=== PATIENT | male | born 1945 | race Caucasian/White ===

== ENCOUNTER 2019-12-19 14:18 | Outpatient (CLI) | payer OTHER, SELFPAY ==
--- NOTE | ~2019-12-19 | XR_ITS ---
EXAMINATION: XR heel RT min 2V DATE: 12/19/2019 14:51 INDICATION: Chronic right heel pain. Plantar fascial fibromatosis. TECHNIQUE: 2 views of right calcaneus were obtained. COMPARISON: None. FINDINGS: Bone alignment is normal. No fracture. There is mild osteoarthritis of talonavicular joint. There are enthesophytes at the posterior and plantar aspects of calcaneal tuberosity. IMPRESSION: 1. No fracture. Reviewed, dictated and finalized at location A. 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 No fracture.
== END 2019-12-19 14:19 | disposition home or self-care (01) ==
LOC: ANHIMG 14:33
PROVIDERS: PCP Internal Medicine; Visit Provider Nurse Practitioner
DX: M72.2 Plantar fascial fibromatosis (principal)
CPT/HCPCS: 73650

== ENCOUNTER 2020-03-17 11:16 | Outpatient (CLI) | payer OTHER, SELFPAY ==
--- NOTE | ~2020-03-17 | XR_ITS ---
XR_[id number]_CR DATE: 03/17/2020 11:47 INDICATION: Fall. Lower lateral and posterior rib pain TECHNIQUE: PA chest. 4 views of the right ribs. COMPARISON: None FINDINGS: There is slight angulation deformity of the posterolateral aspect of the right ninth rib wh ich may be a nondisplaced recent fracture or old fracture deformity. No displaced fractures or any un derlying pulmonary contusion, pleural effusion or pneumothorax is evident. Status post lower cervical spine surgical fusion. Mild dextroscoliosis of the thoracic spine. Diffuse osteopenia. IMPRESSION: Minimal fracture angulation deformity of posterolateral right ninth rib of undetermined a ge. No apparent displaced rib fractures Reviewed, dictated and finalized at Location A. Reviewed, dictated and finalized at location A. IMPRESSION: Minimal fracture angulation deformity of posterolateral right ninth rib of undetermined age. No apparent displaced rib fractures
== END 2020-03-17 11:17 | disposition home or self-care (01) ==
PROVIDERS: PCP Internal Medicine; Visit Provider Internal Medicine
DX: R07.81 Pleurodynia (principal); S22.31XA Fracture of one rib, right side, initial encounter for closed fracture
CPT/HCPCS: 71101

== ENCOUNTER 2020-06-30 00:04 | Outpatient (CLI) | payer OTHER, SELFPAY ==
[2020-06-30 16:39] LABS: SARS-CoV-2 RNA PCR Negative
== END 2020-06-30 00:05 | disposition home or self-care (01) ==
LOC: ANHCOVIDDT 00:04
PROVIDERS: PCP Internal Medicine; Visit Provider Internal Medicine Gastroenterology
DX: Z01.812 Encounter for preprocedural laboratory examination (principal); Z20.828 Contact with and (suspected) exposure to other viral communicable diseases
CPT/HCPCS: 87635; C9803; U0003

== ENCOUNTER 2020-07-02 02:01 | Day surgery (SDC) | payer OTHER, SELFPAY ==
[2020-06-19 08:19] VITALS: BMI 31.6
[2020-07-02] MEDS: LACTATED RINGERS 1,000 ML 150 ML IV CONT (09:39)
[2020-07-02 09:46] VITALS: BP 144/88; PULSE 78; RESP 16; TEMP 36.6; O2SAT 96; BMI 32.2
--- NOTE | 2020-07-02 10:13 | WPDANESEPPF ---
Anes - Initial Pre Proc Eval Procedure: Operation Date: 07/02/20 10:30 Proposed Procedures p Screening Colonoscopy - Alec Khalil MD Date/Time: 07/02/20 10:13 Surgeon: Alec Khalil MD Pre Op Diagnosis: neoplasm screening Patient Data Age: 74 Gender: M Height: 5 ft 10 in Weight: 101.8 kg Last Vital Signs Temp 98 F 07/02/20 09:46 Pulse 78 07/02/20 09:46 Resp 16 07/02/20 09:46 BP 144/88 H 07/02/20 09:46 Pulse Ox 96 07/02/20 09:46 Allergies Allergy/AdvReac Type Severity Reaction Status Date / Time No Known Allergies Allergy Verified 07/02/20 09:15 Home Medications Medication Instructions Recorded Confirmed Type calcium carbonate 500 mg calcium 500 mg PO DAILY 12/18/19 07/02/20 History (1,250 mg) capsule citalopram 20 mg tablet See Rx Instructions .ROUTE 02/29/20 07/02/20 Rx .COMPLEX #90 tablet pravastatin 80 mg tablet See Rx Instructions .ROUTE 02/29/20 07/02/20 Rx .COMPLEX #90 tablet tramadol 50 mg tablet 50 mg PO Q6H PRN #90 tablet 03/05/20 07/02/20 Rx benazepril 40 mg tablet 40 mg PO DAILY #90 tablet 04/03/20 07/02/20 Rx diphenhydramine 25 2 tablet PO .qhs PRN tablet 05/28/20 07/02/20 History mg-acetaminophen 500 mg tablet tamsulosin 0.4 mg capsule 0.4 mg PO DAILY #180 cap 06/18/20 07/02/20 Rx aspirin [Adult Low Dose Aspirin] 81 mg PO DAILY 07/02/20 07/02/20 History Patient hx anesthesia problems: none Family hx anesthesia problems: none PMFSH Past Medical History Medical History (Updated 07/02/20 @ 09:53 by Yoni Stewart MD) Benign prostatic hyperplasia Essential (primary) hypertension Screening for colon cancer Social History Social History Smoking packs per day: 1 Smoking cigarettes per day: 20.0 Years smoked: 10 Smoking pack-years: 10.00 Smoking status: Former smoker Tobacco type: cigarettes Smoking end date: 10/17/81 Alcohol intake: former Substance use: never Living arrangements: with family Spiritual care concerns: No Anes - Eval Final PreProcedure Day of Procedure 07/02/20 10:13 Patient weight: overweight Heart: regular rate and rhythm Lungs: clear to auscultation Airway: Mallampati scale class III Neurological: alert and oriented Last oral intake: >/= 8 hours ASA classification: II Emergent: no Anesthetic plan: proceed Anesthesia type and monitoring: general GIVS and standard monitoring Informed Consent: The patient's anesthetic plan and its attendant risks and benefits were discussed with the patient/family/POA. Questions were solicited and answers provided to the satisfaction of the patient/family/POA.
--- NOTE | 2020-07-02 10:35 | PM.HPGS ---
History of Present Illness History of Present Illness Consent: Risks, benefits, and alternatives have been discussed and questions answered. Patient agrees to proceed with procedure. Chief complaint: neoplasm screening Narrative: Wilmer Fregoso is a 74 year old male Here for screening colonoscopy. His a family history of colon cancer, his father. [facility] Past Medical History Medical History Benign prostatic hyperplasia Essential (primary) hypertension Screening for colon cancer Family History Family History Mother Family history of cataracts Family history of arthritis Family history of malignant neoplasm Patient's mother is Father Carcinoma of colon Patient's father is Family history of malignant neoplasm Sibling Patient's sister is in good health Patient's brother is in good health Other Family history of rheumatoid arthritis Social History Social History Smoking packs per day: 1 Smoking cigarettes per day: 20.0 Years smoked: 10 Smoking pack-years: 10.00 Smoking status: Former smoker Tobacco type: cigarettes Smoking end date: 10/17/81 Alcohol intake: former Substance use: never Living arrangements: with family Spiritual care concerns: No Meds Home Medications and Allergies Home Medications Medication Instructions Recorded Confirmed Type calcium carbonate 500 mg calcium 500 mg PO DAILY 12/18/19 07/02/20 History (1,250 mg) capsule citalopram 20 mg tablet See Rx Instructions .ROUTE 02/29/20 07/02/20 Rx .COMPLEX #90 tablet pravastatin 80 mg tablet See Rx Instructions .ROUTE 02/29/20 07/02/20 Rx .COMPLEX #90 tablet tramadol 50 mg tablet 50 mg PO Q6H PRN #90 tablet 03/05/20 07/02/20 Rx benazepril 40 mg tablet 40 mg PO DAILY #90 tablet 04/03/20 07/02/20 Rx diphenhydramine 25 2 tablet PO .qhs PRN tablet 05/28/20 07/02/20 History mg-acetaminophen 500 mg tablet tamsulosin 0.4 mg capsule 0.4 mg PO DAILY #180 cap 06/18/20 07/02/20 Rx aspirin [Adult Low Dose Aspirin] 81 mg PO DAILY 07/02/20 07/02/20 History Allergies Allergy/AdvReac Type Severity Reaction Status Date / Time No Known Allergies Allergy Verified 07/02/20 09:15 Vital Signs Vital Signs - 24 hr 07/02/20 09:46 Temperature 36.6 C Pulse Rate 78 Respiratory Rate 16 Blood Pressure 144/88 H Pulse Oximetry 96 Exam Resp: Auscultation: clear to auscultation bilaterally Cardio: Rate: regular rate Rhythm: regular rhythm GI: GI Palp: Yes Soft to palpation and No Tenderness to palpation present (GI) Assessment and Plan Assessment and plan (1) Screening for colon cancer: Code(s): Z12.11 - Encounter for screening for malignant neoplasm of colon Status: Acute Assessment and Plan: Colonoscopy with possible biopsy or polypectomy or cautery or injection of substances.
[2020-07-02] MEDS: SIMETHICONE ORAL SUSPENSION 20 MG/0.3 ML 30 ML BOTTLE 0.6 ML IRRIGATION (10:56)
[2020-07-02 11:03] VITALS: BP 118/73; PULSE 69; RESP 18; O2SAT 95
[2020-07-02 11:13] VITALS: BP 120/75; PULSE 65; RESP 16; O2SAT 95
[2020-07-02 11:23] VITALS: BP 123/76; PULSE 57; RESP 14; O2SAT 97
[2020-07-02 11:33] VITALS: BP 134/87; PULSE 60; RESP 16; O2SAT 96
== END 2020-07-02 11:38 | disposition home or self-care (01) ==
PROVIDERS: PCP Internal Medicine; Visit Provider Internal Medicine Gastroenterology
PROC: 0DJD8ZZ Inspection of Lower Intestinal Tract, Via Natural or Artificial Opening Endoscopic (ICD-10-PCS; CPT 45378; principal; 2020-07-02 10:30)
DX: Z12.11 Encounter for screening for malignant neoplasm of colon (principal); I10 Essential (primary) hypertension; N40.0 Benign prostatic hyperplasia without lower urinary tract symptoms; Z87.891 Personal history of nicotine dependence
CPT/HCPCS: 45378; J2704; J7120

== ENCOUNTER 2020-12-22 11:18 | Outpatient (CLI) | payer OTHER, MEDICARE, SELFPAY | END 2020-12-22 11:19 | disposition home or self-care (01) | LOC: ANHCOVIDVC 11:18 | PROVIDERS: PCP Internal Medicine | DX: Z23 Encounter for immunization (principal) | CPT/HCPCS: 0001A; 91300 ==

== ENCOUNTER 2021-01-12 11:13 | Outpatient (CLI) | payer OTHER, MEDICARE, SELFPAY | END 2021-01-12 11:14 | disposition home or self-care (01) | LOC: ANHCOVIDVC 11:13 | PROVIDERS: PCP Internal Medicine | DX: Z23 Encounter for immunization (principal) | CPT/HCPCS: 0002A; 91300 ==

== ENCOUNTER 2021-12-04 09:33 | Outpatient (CLI) | payer OTHER, SELFPAY ==
--- NOTE | ~2021-12-04 | XR_ITS ---
EXAMINATION: XR lumbar spine 2-3V DATE: 12/04/2021 09:45 INDICATION: Low back pain TECHNIQUE: Anteroposterior and lateral views of the lumbar spine, and cone-down lateral view of the l umbosacral junction were obtained. COMPARISON: 11/19/2013 FINDINGS: There are changes of posterior fusion at L3-4. Bone alignment is normal. There is no fractu re. There is severe loss of intervertebral disc space height from L2-3 through L5-S1. Small degenerat acacia osteophytes project from the anterior endplates of multiple vertebral bodies. Calcified atheroscl erosis is noted. IMPRESSION: 1. Severe lumbar spondylosis without acute findings or significant interval change. Reviewed, dictated and finalized at location A. ASSEMBLER IMPRESSION: 1. Severe lumbar spondylosis without acute findings or significant interval carina nge.
== END 2021-12-04 09:34 | disposition home or self-care (01) ==
PROVIDERS: PCP Internal Medicine; Visit Provider Internal Medicine
DX: M47.816 Spondylosis without myelopathy or radiculopathy, lumbar region (principal); I70.0 Atherosclerosis of aorta
CPT/HCPCS: 72100

== ENCOUNTER 2021-12-15 06:41 | Outpatient (CLI) | payer OTHER, SELFPAY ==
--- NOTE | ~2021-12-15 | MR_ITS ---
EXAMINATION: MR lumbar spine wo con EXAM DATE: 12/15/2021 07:24 INDICATION: M54.16 - Radiculopathy, lumbar region . TECHNIQUE: Multi-sequential, multiplanar MR images of the lumbar spine were obtained without contrast . Sagittal T1, T2, T2 fat saturation images. Axial T2 weighted images. Correlation is made to lumba r x-ray from 12/04/2021. FINDINGS: There is L3-4 posterior fusion and laminotomies. Moderate to severe loss of the disc height from L2 through S1. Partially fused L3-4 vertebral bodies. There is 6 mm retrolisthesis L5 on S1. No spondylolysis suspected. The conus medullaris terminates at the L1/2 level and has normal signal int ensity and morphology. There are no suspicious marrow signal abnormalities. Paraspinal soft tissue i s unremarkable. Level by level evaluation: T12-L1: There is a mild diffuse disc bulge. Facet arthropathy: Mild to moderate. Neural foraminal stenosis: No stenosis. Central canal stenosis: No stenosis. L1-L2: There is a mild diffuse disc bulge. Facet arthropathy: Moderate. Neural foraminal stenosis: No stenosis. Central canal stenosis: No stenosis. L2-L3: There is a moderate to large diffuse disc bulge. Facet arthropathy: Severe . Ligamentum flavum enlargement. Neural foraminal stenosis: Moderate bilateral. Central canal stenosis: Moderate, nerve root crowding. L3-L4: Partially fused vertebral bodies. Facet arthropathy: Fused. Neural foraminal stenosis: Mild to moderate bilateral. Central canal stenosis: Mild. L4-L5: Moderate to severe Facet arthropathy: Severe . Ligamentum flavum enlargement. Neural foraminal stenosis: Moderate to severe left, moderate right. Central canal stenosis: Mild to moderate. L5-S1: There is a moderate diffuse disc bulge. Facet arthropathy: Moderate. Neural foraminal stenosis: Moderate to severe left, moderate right. Central canal stenosis: Mild. IMPRESSION: 1. Moderate to severe lumbar spondylosis as detailed above. 2. L3-4 fusion, laminotomies. Reviewed, dictated and finalized at location G. GN AND SALES CONSULTANT
== END 2021-12-15 06:42 | disposition home or self-care (01) ==
PROVIDERS: PCP Internal Medicine; Visit Provider Internal Medicine
DX: M54.16 Radiculopathy, lumbar region (principal); M47.816 Spondylosis without myelopathy or radiculopathy, lumbar region; Z98.1 Arthrodesis status
CPT/HCPCS: 72148

== ENCOUNTER → 2022-07-06 01:24 | Outpatient (CLI) | payer OTHER, SELFPAY ==
[2022-07-06 10:39] LABS: SARS-CoV-2 RNA PCR Positive
== END ==
PROVIDERS: PCP Internal Medicine; Visit Provider Internal Medicine
DX: U07.1 COVID-19 (principal)
CPT/HCPCS: C9803; U0003; U0005

== ENCOUNTER 2025-04-17 12:39 | Outpatient (CLI) | payer OTHER, SELFPAY ==
--- NOTE | ~2025-04-17 | XR_ITS ---
3 VIEWS LUMBAR SPINE Ordering provider: Darius Turcios History: . M54.16 - Radiculopathy, lumbar region . Comparison: None. FINDINGS: VERTEBRAL BODIES:Postoperative changes at the level of L3-4. No visible fracture or subluxation. DISK SPACES: Narrowing of the disc L2-L3, L3-L4, L4-L5 and L5-S1. SOFT TISSUES: Normal. IMPRESSION: No acute osseous abnormality lumbar spine. Postoperative changes Multilevel degenerative disc disease. Reviewed, dictated and finalized at location A.
--- NOTE | ~2025-04-17 | XR_ITS ---
XR sacrum coccyx min 2V Ordering provider: Darius Turcios History: . M46.1 - Sacroiliitis, not elsewhere classified . Comparison: None. FINDINGS: BONES: No acute fracture or dislocation. Postoperative changes in the lower lumbar area with multilevel degenerative disc disease. JOINTS: The sacroiliac joint spaces are normal. SOFT TISSUES: Soft tissues are normal. IMPRESSION: No acute osseous abnormality sacrum and coccyx. Multilevel degenerative disc disease. Reviewed, dictated and finalized at location A.
--- NOTE | ~2025-04-17 | MR_ITS ---
MRI of the lumbar spine Clinical History: Radiculopathy Technique: Axial T2-weighted images, and sagittal T1-weighted, T2-weighted, and T2 fat-sat images wer e acquired. COMPARISON: 12/15/2021 Findings: No acute fracture identified. Stable grade 1 retrolisthesis of L4 over L5. Osseous alignmen t is essentially unchanged from prior exam. Posterior fusion from L3 to L4 is again present, unchange d. No suspicious bone marrow signal abnormality seen. At L1-L2, there is moderate degenerative disc narrowing. There is mild disc bulge with moderate facet hypertrophy. No spinal canal stenosis. There is moderate to severe right neural foraminal narrowing, and mild left neural foraminal narrowing. At L2-L3, there is severe degenerative disc narrowing. Disc bulge and severe facet arthropathy result in severe spinal canal stenosis/thecal sac compression. There is severe right neural foraminal narro wing, and moderate left neural foraminal narrowing. At L3-L4, there is severe degenerative disc narrowing. There is facet arthropathy/fusion. No spinal c anal stenosis. There is mild bilateral neural foraminal narrowing. At L4-L5, there is severe degenerative disc narrowing. Disc bulge and severe facet arthropathy result in mild central canal stenosis. There is severe bilateral neural foraminal compromise. At L5-S1, there is severe degenerative disc narrowing. There is diffuse disc bulge with advanced face t arthropathy. No central canal stenosis. There is severe left neural foraminal narrowing, and modera te to severe right neural foraminal narrowing. Impression: Severe degenerative spondylosis, as detailed above, worst at L2-L3. Additional degenerative changes w ith multilevel neural foraminal narrowing and extensive facet arthropathy. Postoperative changes at L3-L4 is stable from prior exam. Reviewed, dictated and finalized at location . Impression: Severe degenerative spondylosis, as detailed above, worst at L2-L3. Additional degenerative changes with multilevel neural foraminal narrowing and extensive f acet arthropathy. Postoperative changes at L3-L4 is stable from prior exam.
== END 2025-04-17 12:40 | disposition home or self-care (01) ==
LOC: GOSHIMG 12:39
PROVIDERS: PCP Anesthesiology Pain Medicine; Visit Provider Anesthesiology Pain Medicine
DX: M51.369 Other intervertebral disc degeneration, lumbar region without mention of lumbar back pain or lower extremity pain (principal); M47.816 Spondylosis without myelopathy or radiculopathy, lumbar region; M51.379 Other intervertebral disc degeneration, lumbosacral region without mention of lumbar back pain or lower extremity pain; M21.372 Foot drop, left foot; M46.1 Sacroiliitis, not elsewhere classified
CPT/HCPCS: 72114; 72148; 72220

== ENCOUNTER 2025-05-06 08:04 | Day surgery (SDC) | payer OTHER, SELFPAY ==
--- NOTE | ~2025-05-06 | XR_ITS ---
XR fluoroscopy no charge Indication: Right L1-L2 and L2-3 transforaminal epidural steroid injection TECHNIQUE: Fluoroscopy used during Right L1-L2 and L2-3 transforaminal epidural steroid injection pe rformed by [Mayito Marino MD] on 05/06/2025. 28 seconds of fluoroscopy with 3 fluoroscopic imag es captured. FINDINGS: Correlate with procedure note. IMPRESSION: Fluoroscopy used during Right L1-L2 and L2-3 transforaminal epidural steroid injection. Reviewed, dictated and finalized at location A. IMPRESSION: Fluoroscopy used during Right L1-L2 and L2-3 transforaminal epidura l steroid injection.
--- OUTSIDE RECORDS SUMMARY | 2025-05-06 08:19 | XMS_ITS | Clinical Summary ---
Author Organization [facility] Address [address] [place] [address] Care Team Providers Care Regional Wildlife Agent Name Role Phone Unavailable Primary Care Provider Unavailabl e Source Comments [facility] [employer],non-owned Affiliates and Associated Physician Practices is amultiple site organization consisting of ambulatory clinics and hospital sitesin [place], [place], [place] and [place]. This disclosure is being madepursuant to the Care Everywhere program and may not contain all information available regarding this patient. 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 Gender Identity Not on file Sexual Orientation Not on file Plan of Treatment Health Maintenance Due Date Last Done Comments DTAP/TDAP/TD VACCINES (1 - Tdap) 1964 PNEUMOCOCCAL VACCINE 50+ (1 of 1 - PCV) 1995 ZOSTER VACCINE (1 of 2) 1995 Respiratory Syncytial Virus (RSV) Vaccine Pt: or over 60 yrs (1 - 1-dose 75+ series) 2020 COVID-19 VACCINE ( - 2023-2 5 season) 2024 DEPRESSION SCREENING 10/17/2024 INFLUENZA VACCINE (#1) 2025 HEPATITIS B VACCINE Aged Out No longe r eligible based on patient's age to complete this topic HIB VACCINE Aged Out No longer eligi ble based on patient's age to complete this topic HPV VACCINE Aged Out No longer eligi ble based on patient's age to complete this topic MENINGOCOCCAL (Group B) VACC INE SHARED DECISION-MAKING Aged Out No longer eligibl e based on patient's age to complete this topic MENINGOCOCCAL GROUPS A/C/Y/W VACCINE Aged Out No longer eligible b ased on patient's age to complete this topic
--- OUTSIDE RECORDS SUMMARY | 2025-05-06 08:19 | XMS_ITS | Clinical Summary ---
Author Organization [facility] Address [address] [place] [address] Care Team Providers Care Geothermal Hvac Technician Name Role Phone Unavailable Primary Care Provider Unavailabl e Allergies No known active allergies Medications Potassium 99 MG tablet Take 1 tablet by mouth daily. Active fish oil (OMEGA-3 FATTY ACID) 1000 MG Cap capsule Take 1 capsule (1,000 mg total) by mouth 2 (two) times daily. Active Vitamin D3 (VITAMIN D) 50 mcg tablet Act acacia B complex-C Cap capsule Take 1 capsule by mouth daily. Active aspirin EC (ECOTRIN) 81 MG tablet Take 1 tablet (81 mg total) by mouth daily. Active diphenhydrAMINE-APA P (TYLENOL PM) 25-500 MG Tab tablet Take 1 tablet by mouth nightly at bedtime. Active celecoxib (CELEBREX) 100 MG capsuleIndications: Chronic midline low back pain without sciatica TAKE 1 CAPSULE BY MOUTH 2 TIMES DAILY NEEDED FOR BACK PAIN 60 capsule 1 3 Active pravastatin (PRAVACHOL) 40 MG tabletIndications:H yperlipidemia, unspecified hyperlipidemia type take 1 tablet by mouth every day 90 tablet 1 4 Active citalopram (CELEXA) 20 MG tabletIndications:G eneralized anxiety disorder TAKE 1 TABLET BY MOUTH EVERY DAY 30 tablet 4 Active benazepril (LOTENSIN) 40 MG tabletIndications:P rimary hypertension TAKE 1 TABLET BY MOUTH EVERY DAY 90 tablet 1 4 Active benzonatate (TESSALON) 200 MG capsule take 1 capsule by mouth three times a day as needed for cough 4 Active tamsulosin (FLOMAX) 0.4 MG CapIndications:Joseph gn prostatic hyperplasia with nocturia TAKE 1 CAPSULE BY MOUTH 2 TIMES A DAY. 180 capsule 5 Active rOPINIRole (REQUIP) 0.25 MG tabletIndications:R LS (restless legs syndrome) TAKE 1 TABLET BY MOUTH EVERY DAY NIGHTLY NEEDED 30 tablet 5 Active Active Problems Problem Noted Date Diagnosed Date Prediabetes 10/31/2023 Actinic keratoses 04/15/2023 Skin lesion of right ear 04/15/2023 RLS (restless legs syndrome) 10/20/2022 Hyperlipidemia, unspecified hyperlipidemia type 10/20/2022 Primary hypertension 10/20/2022 Vitamin D deficiency 10/20/2022 Benign prostatic hyperplasia with nocturia 10/20 Generalized anxiety disorder 10/20/2022 Class 1 obesity due to exces s calories with serious comorbidity and body mass index (BMI) of 33.0 to 33.9 in adult 10/15/2022 Immunizations Immunization Administration Dates Next Due Arexvy Respiratory Syncytial Virus (RSV, adjuvanted) 0.5 mL, PF 04/05/2024 Fluzone High Dose (IIV, trivalent, 0.5mL) 2023 Fluzone High Dose - >Age 65 (Prefilled Syringe) 08/29/2022,07/29/2021 Influenza (Generic) 08/01/2014,10/31/2013,2011 Influenza Adult (Generic) 07/16/2023,08/02/2019, 07/26/2018 PFIZER COVID-19 (ORIGINAL FO RMULATION, PURPLE CAP) mRNA, LNP-S, PF, 30 MCG/0.3 ML DOSE 08/08/2021,01/12/2021,12/22/2020 PFIZER COVID-19 BIVALENT (12 +) mRNA, LNP-S, PF, 30 MCG/0.3 ML DOSE 08/29/2022 Pneumococcal (Pneumovax 23) 07/26/2018 Pneumococcal (Prevnar 20) 04/15/2023 Shingrix 04/05/2024,01/20/2024 Family History Medical History Relation Comments Cancer Father No Known Problems Mother Relation Status Comments Father (Age 62) Mother (Age 94) Social History Tobacco Use Types Packs/Day Years Used Date Smoking Tobacco: Former Cigarettes 1 10 1 11/17/1971 - 09/16/1982 Smokeless Tobacco: Never Alcohol Use Standard Drinks/Week Comments Not Currently 0 (1 standard drink = 0.6 oz pur e alcohol) PHQ-2 Answer Date Recorded Patient Health Questionnaire-2 Score 0 10/31/2023 Sex and Gender Information Value Date Recorded Sex Assigned at Not on file Legal Sex Male 4:53 PM CDT Gender Identity Not on file Sexual Orientation Not on file Last Filed Vital Signs Vital Sign Reading Time Taken Comments Blood Pressure 117/74 10/11/2024 1:24 PM 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 Pulse 90 10/11/2024 1:24 PM SPIRAL TUBE WINDER Temperature 37.2 C (99 F) 10/11/2024 1:24 PM SPIRAL TUBE WINDER Respiratory Rate 16 10/11/2024 1:24 PM SPIRAL TUBE WINDER Oxygen Saturation 93% 10/11/2024 1:24 PM SPIRAL TUBE WINDER Inhaled Oxygen Concentration - - Weight 104.6 kg (230 lb 9.6 oz) 10/11/2024 1:24 PM SPIRAL TUBE WINDER Height 177.8 cm (5' 10) 10/11/2024 1:24 PM SPIRAL TUBE WINDER Body Mass Index 33.09 10/11/2024 1:24 PM SPIRAL TUBE WINDER Plan of Treatment Health Maintenance Due Date Last Done Comments Annual Medicare Wellness Visit 2010 PHQ-2 (Physician [place]) 10/17/2024 10/31/2023 COVID-19 Vaccine ( season) 2025 07/16/2023, 08/29/2022, 08/08/2021, Additional history exists Postponed from 06/17/2024 (Patient Refused) DTaP, Tdap and Td Vaccines (1 - Tdap) 10/11/2025 Postponed from 1964 (Patient Refused) Pneumococcal Vaccine: 50+ Years Completed 04/15/2023, 07/26/2018 RSV Immunization or 60+ Years Completed 04/05/2024 Zoster Vaccines Completed 04/05/2024, 01/20/2024 Hepatitis C Completed 10/31/2024 Meningococcal B Vaccine Aged Out No l onger eligible based on patient's age to complete this topic Meningococcal Vaccine Aged Out No david rené eligible based on patient's age to complete this topic RSV Immunizations Under 20 Months Aged Out No longer eligible based on patient's age to complete this topic Procedures Procedure Name Priority Date/Time Associated Diagnosis Comments HEPATITIS C ANTIBODY W/RFX TO HCV RNA Routine 10/31/2024 9:05 AM SPIRAL TUBE WINDER from Last 3 Months or Most Recently Relevant to Health Maintenance Results * HEPATITIS C ANTIBODY W/RFX TO HCV RNA (10/31/2024 9:05 AM SPIRAL TUBE WINDER) HEPATITIS C AB NON-REACT ACACIA NON-REACT ACACIA [employer] [facility] Comment: HCV antibody was non-reactive. There is no laboratory evidence of HCV infection. In most cases, no further action is required. However, if recent HCV exposure is suspected, a test for HCV RNA (test code 15896) is suggested. For additional information please refer to http://education.Lockr/faq/SDB84b1 (This link is being provided for informational/ educational purposes only.) 10/31/2024 9:05 AM SPIRAL TUBE WINDER 10/31/2024 9:06 AM SPIRAL TUBE WINDER Narrative [facility] - 11/01/2024 7:31 AM SPIRAL TUBE WINDER FASTING:YES FASTING: YES Resulting Agency Comment Performing Organization Information: Site ID: [place] Name: [facility] Address: [address] [place] [address] Director: Ana Maki MD us [facility] Final Result [employer] Saige BAILEY [facility] [id number] [place], [place] [address] from Last 3 Months or Most Recently Relevant to Health Maintenance Insurance [employer]
--- NOTE | 2025-05-06 08:32 | WPDHPUPDATE1 ---
History and Physical Update Update Date/Time: 05/06/25 08:32 History and Physical has been reviewed, including an updated exam of the patient. There are NO changes in the patient's condition. Risks, benefits, and alternatives have been discussed and questions answered. Patient agrees to proceed with procedure.
--- NOTE | 2025-05-06 08:33 | P.OP_ITS ---
Procedure Note - Detailed Date of Procedure 05/06/25 Pre-op Diagnosis Lumbar radiculopathy. lumbar spinal stenosis Post-op Diagnosis Same Procedure Performed Right Lumbar Transforaminal Epidural Steroid Injection under Fluoroscopic Gadiel nce and with Contrast Control at L1-2, L2-3. Surgeon Mayito Marino MD Anesthesia Local Description of Procedure INFORMED CONSENT: Risks, benefits and alternatives to the procedure were discussed in detail with the patient who expressed explicit understanding and consent to proceed. Patient was informed verbally and in written form regarding the risks associated with the procedure including the low risk of serious infection, bleeding/bruising, allergic reaction, nerve or organ injury, paralysis, procedural site pain or discomfort, worsening pain and/or mobility, failure to treat and/or disfigurement. The patient expressed explicit understanding and consent to proceed. All materials required for the procedure were available prior to procedure start. Site and side was marked prior to procedure and confirmed in the presence of the patient. PROCEDURE IN DETAIL: The patient was brought to the procedural suite and placed in the prone position. Patient was made comfortable with use of pillows under the head/chest, hips and ankles. Skin overlying the injection site was prepared broadly with ChloraPrep applicator and draped in a sterile manner. Aseptic technique was employed throughout. The endplates of the vertebral body at the site of interest were aligned in the AP view. Ipsilateral oblique angulation was utilized to better visualize the neuroforamen of interest. Local anesthesia was established by infiltration with approximately 5 mL of 0.5% PF lidocaine via a 1-1/2 inch 27-gauge needle. A 22-gauge 3.5 inch Mary Ann (pencil point) spinal needle was advanced until the needle approached the 6 o'clock position on the pedicle just superior to the exiting nerve root. on the right at L1-2. Lateral view was utilized to confirm appropriate position of the needle tip within the superior and posterior portion of the respective foramen. In an AP view, 1 mL of Omnipaque 300 contrast medium was injected after negative aspiration for CSF, blood or other bodily fluid, showing appropriate neurogram without evidence of i ntravascular or intrathecal spread of contrast. Digital subtraction imaging was used with an additional 1ml of the same contrast medium to confirm absence of intravascular contrast spread. A 1mL solution containing 3 mg of betamethasone was injected after negative repeat aspiration. Appropriate spread of the injectate was confirmed with washout of previously injected contrast. No parasthesias were elicited. Needle was removed completely intact without difficulty. The same exact procedure was repeated for all remaining levels on the ipsilateral side, right L2-3 neuroforamen, modified as necessary to accommodate for the new target location with identical findings and results and no evidence of complication. Images were saved and documented in the patient chart. Patient's skin was cleaned and sterile bandage applied. The patient tolerated the procedure well. The patient was transported to the recovery area in stable condition where they were observed for an appropriate amount of time prior to discharge, without evidence of complication. The patient was instructed to avoid excessive activity for the next 48 hours, including climbing and frequent use of stairs. Showers only for 48 hours. They were instructed not to drive or operate heavy machinery for 24 hours. They are to monitor for severe headaches, fevers, chills, night sweats, erythema/swelling at the site or any other signs of infection, bleeding/bruising, bowel or bladder changes as well as new pain, weakness or numbness in the upper or lower extremity. Should they notice these changes, they are instructed to call our office immediately or report directly to the nearest Emergency Department if no answer or if after posted office hours. COMPLICATIONS: None COMMENTS: None CONTRAST WASTED: 26 mL Omnipaque 300. STEROID WASTED: 0 mg of betamethasone. Complications No immediate complications Condition Stable Disposition Same day [facility] Billing Surgery - Charge Forward: Surgery Billing
[2025-05-06 08:42] VITALS: BP 128/82; PULSE 91; RESP 16; TEMP 36.5; O2SAT 96; BMI 31.0
[2025-05-06 09:26] VITALS: BP 139/71; PULSE 84; RESP 15; O2SAT 95
[2025-05-06 09:33] VITALS: BP 139/71; PULSE 78; RESP 15; O2SAT 94
[2025-05-06 09:39] VITALS: BP 135/84; PULSE 82; RESP 16; O2SAT 97
[2025-05-06] MEDS: BETAMETHASONE SODIUM PHOSPHATE PF INJ 6 MG/ML VIAL INFILTRATE (09:40)
[2025-05-06] MEDS: LIDOCAINE 2% PF LOCAL INJ 5 ML VIAL 1 ML INFILTRATE (09:42)
[2025-05-06] MEDS: LIDOCAINE 1% PF INJ 5 ML VIAL INFILTRATE (09:45)
== END 2025-05-06 09:53 | disposition home or self-care (01) ==
PROVIDERS: PCP Family Medicine; Visit Provider Anesthesiology Pain Medicine
PROC: (CPT 64483; principal; 2025-05-06 09:10)
DX: M48.061 Spinal stenosis, lumbar region without neurogenic claudication (principal); M54.16 Radiculopathy, lumbar region
CPT/HCPCS: 64483; 64484; 99199